=== PATIENT | male | born 1975 | race Caucasian/White ===

== ENCOUNTER → 2020-04-30 | Outpatient (CLI) | payer BC | LOC: CARD 10:00 | PROVIDERS: ATTEND Internal Medicine Cardiovascular Disease | DX: I10 Essential (primary) hypertension (principal); E78.5 Hyperlipidemia, unspecified | CPT/HCPCS: 93306 ==

== ENCOUNTER → 2020-05-01 | Outpatient (CLI) | payer BC ==
[~2020-05-01] VITALS: Ht 160 cm; Wt 78.0 kg
[~2020-05-01] MED LIST: CATHETER FLUSH 10 ML SYR IV PRN
[2020-05-01 12:52] VITALS: BP 132/90
--- NOTE | 2020-05-01 16:56 | STRESS TEST ---
DATE OF SERVICE: 05/01/2020 RESTING AND POST EXERCISE TECHNETIUM-99M TETROFOSMIN SPECT CT IMAGING ORDERING PHYSICIAN: Dr. Montilla. CLINICAL DIAGNOSES: Shortness of breath, hypertension, hyperlipidemia. Baseline images were carried out after injection of 10.26 mCi of technetium-99m Tetrofosmin. This was followed by exercise on a treadmill. Prakash protocol was employed. Heart rate response to exercise was normal. Blood pressure response to exercise was somewhat hypertensive. After the patient had attained more than 85% of maximum predicted heart rate, 30.2 mCi of technetium-99m Tetrofosmin were injected and the exercise was continued for another minute. The exercise was stopped on account of fatigue. There did not appear to be significant ST segment deviation. There was nonspecific T-wave abnormality in the recovery phase. The patient did not report chest discomfort. No significant arrhythmia was seen during the study. Review of images at rest and following stress does not indicate any significant perfusion defects consistent with myocardial ischemia or infarction. Gated images show normal regional wall motion and normal global left ventricular systolic function with a calculated ejection fraction of 53%. Left ventricular end diastolic volume is 34 mL. TID is absent (0.81). CONCLUSIONS: 1. No evidence of any significant myocardial ischemia or infarction on this study. 2. Normal regional wall motion. 3. Normal global left ventricular systolic function with ejection fraction approximately 53%. 4. Somewhat hypertensive response to exercise. Job ID: [id number] DocumentID: [id number] Dictated Date: 05/01/2020 14:26:15 Sausage Maker Date: 05/01/2020 16:55:39 Dictated By: NOE MONTILLA MD, MA, FACP, FACC,
== END ==
LOC: CARD 11:10
PROVIDERS: ATTEND Internal Medicine Cardiovascular Disease
DX: I10 Essential (primary) hypertension (principal); R06.02 Shortness of breath; E78.5 Hyperlipidemia, unspecified
CPT/HCPCS: 78452; 93017; A9502

== ENCOUNTER 2021-01-25 19:03 | Emergency (ER) | payer BC ==
[~2021-01-25] VITALS: Ht 167.6 cm; Wt 70.0 kg
--- NOTE | 2021-01-25 20:10 | ED GU-Female ---
General Chief Complaint: Abdominal/GI Problems Stated Complaint: RECTAL BLEEDING Nursing Triage Note: Pt ambulatory into ER with complaint of Blood in Stools/Diarrhea today. Pt states that he has been having inconsistant bowel movements for the last 6 months, but today he states that there was blood in his stool and on the toilet paper after wiping. Pt denies seeing anyone for the GI symptoms in the past. Source: patient Exam Limitations: no limitations History of Present Illness Date Seen by Provider: Jan 25, 2021 Time Seen by Provider: 20:08 Initial Comments ER with suprapubic and left lower quadrant abdominal pain intermittently over the last 6 months. Particularly bad over the past week. No fevers or chills no nausea or vomiting. Stools have been intermittently loose and then solid he states they are between a 4 and a 6 on the [facility] stool chart. He had a colonoscopy in 2002 but states it was normal. Timing/Duration: constant Severity/Quality: moderate Location: suprapubic Radiation: none Activities at Onset: none Prior Genitourinary Problems: none Allergies and Home Medications Allergies Coded Allergies: No Allergy Information Available (Unverified , 05/01/20) Patient Home Medication List Home Medication List Reviewed: Yes Review of Systems Review of Systems Constitutional: see HPI; No chills, No fever EENTM: see HPI Respiratory: no symptoms reported Cardiovascular: no symptoms reported Gastrointestinal: abdominal pain Genitourinary: no symptoms reported Musculoskeletal: no symptoms reported Skin: no symptoms reported Psychiatric/Neurological: No Symptoms Reported Endocrine: No Symptoms Reported Past Tezjzid-Bkajsk-Wepxil Hx Patient Social History Tobacco Use?: No Use of E-Cig and/or Vaping dev: No Substance use?: No Alcohol Use?: No Pt feels they are or have been: No Immunizations Up To Date Influenza Vaccine Up-to-Date: No; Not Current Second COVID19 Vaccination Jose: 10/03 COVID19 Vaccine Structural Steel Erector: Roberto Physical Exam Vital Signs Vital Signs - First Documented 01/25/21 19:29 Temp 36.7 Pulse 62 Resp 20 B/P (MAP) 145/91 (109) Pulse Ox 95 Capillary Refill : Less Than 3 Seconds Height, Weight, BMI Height: '" Weight: lbs. oz. kg; 24.00 BMI Method: General Appearance: WD/WN, no apparent distress HEENT: PERRL/EOMI, normal ENT inspection Respiratory: no respiratory distress, no accessory muscle use Gastrointestinal: normal bowel sounds, soft, tenderness (Left lower) Extremities: normal range of motion, non-tender Neurologic/Psychiatric: alert, normal mood/affect, oriented x 3 Skin: normal color, warm/dry Progress/Results/Core Measures Suspected Sepsis SIRS Temperature: Pulse: 62 Respiratory Rate: 20 Laboratory Tests 01/25/21 20:36: White Blood Count 10.5 Blood Pressure 145 /91 Mean: 109 Laboratory Tests 01/25/21 20:36: Creatinine 0.95, Platelet Count 300, Total Bilirubin 0.4 Results/Orders Lab Results Laboratory Tests Test 01/25/21 20:21 01/25/21 20:36 Range/Units Urine Color YELLOW Urine Clarity CLEAR Urine pH 6.0 5-9 Urine Specific [place] >=1.030 1.016-1.022 Urine Protein NEGATIVE NEGATIVE Urine Glucose (UA) NEGATIVE NEGATIVE Urine Ketones NEGATIVE NEGATIVE Urine Nitrite NEGATIVE NEGATIVE Urine Bilirubin NEGATIVE NEGATIVE Urine Urobilinogen 0.2 < = 1.0 MG/DL Urine Leukocyte Esterase NEGATIVE NEGATIVE Urine RBC (Auto) 1+ H NEGATIVE Urine RBC 0-2 /HPF Urine WBC NONE /HPF Urine Squamous Epithelial Cells RARE /HPF Urine Crystals NONE /LPF Urine Bacteria NEGATIVE /HPF Urine Casts NONE /LPF Urine Mucus NEGATIVE /LPF Urine Other FEW SPERM H /HPF Urine Culture Indicated NO White Blood Count 10.5 4.3-11.0 10^3/uL Red Blood Count 4.81 4.30-5.52 10^6/uL Hemoglobin 14.9 13.3-17.7 g/dL Hematocrit 44 40-54 % Mean Corpuscular Volume 91 80-99 fL Mean Corpuscular Hemoglobin 31 25-34 pg Mean Corpuscular Hemoglobin Concent 34 32-36 g/dL Red Cell Distribution Width 13.6 10.0-14.5 % Platelet Count 300 130-400 10^3/uL Mean Platelet Volume 8.7 L 9.0-12.2 fL Immature Granulocyte % (Auto) 0 % Neutrophils (%) (Auto) 56 42-75 % Lymphocytes (%) (Auto) 34 12-44 % Monocytes (%) (Auto) 7 0-12 % Eosinophils (%) (Auto) 2 0-10 % Basophils (%) (Auto) 0 0-10 % Neutrophils # (Auto) 5.9 1.8-7.8 10^3/uL Lymphocytes # (Auto) 3.6 1.0-4.0 10^3/uL Monocytes # (Auto) 0.8 0.0-1.0 10^3/uL Eosinophils # (Auto) 0.2 0.0-0.3 10^3/uL Basophils # (Auto) 0.0 0.0-0.1 10^3/uL Immature Granulocyte # (Auto) 0.0 0.0-0.1 10^3/uL Sodium Level 141 135-145 MMOL/L Potassium Level 4.2 3.6-5.0 MMOL/L Chloride Level 103 98-107 MMOL/L Carbon Dioxide Level 23 21-32 MMOL/L Anion Gap 15 H 5-14 MMOL/L Blood Urea Nitrogen 14 7-18 MG/DL Creatinine 0.95 0.60-1.30 MG/DL Estimat Glomerular Filtration Rate 85 BUN/Creatinine Ratio 15 Glucose Level 137 H 70-105 MG/DL Calcium Level 9.6 8.5-10.1 MG/DL Corrected Calcium 9.4 8.5-10.1 MG/DL Total Bilirubin 0.4 0.1-1.0 MG/DL Aspartate Amino Transf (AST/SGOT) 20 5-34 U/L Alanine Aminotransferase (ALT/SGPT) 29 0-55 U/L Alkaline Phosphatase 89 40-136 U/L Total Protein 7.6 6.4-8.2 GM/DL Albumin 4.2 3.2-4.5 GM/DL My Orders Orders - RHIANNON THRASHER ERP TECHNICAL LEAD Cbc With Automated Diff (01/25/21 19:54) Comprehensive Metabolic Panel (01/25/21 19:54) Ua Culture If Indicated (01/25/21 19:54) Ct Abdomen/Pelvis W (01/25/21 19:54) Ed Iv/Invasive Line Start (01/25/21 19:54) Iohexol Injection (Omnipaque 350 Mg/Ml 1 (01/25/21 21:00) Received Contrast (Hold Metformin- Contr (01/25/21 21:00) Ns (Ivpb) (Sodium Chloride 0.9% Ivpb Bag (01/25/21 21:00) Medications Given in ED Current Medications Medications Dose Ordered Sig/Ernie Route Start Time Stop Time Status Last Admin Dose Admin Iohexol 100 ml ONCE ONCE IV 01/25/21 21:00 01/25/21 21:01 DC 01/25/21 20:49 100 ML Sodium Chloride 100 ml ONCE ONCE IV 01/25/21 21:00 01/25/21 21:01 DC 01/25/21 20:49 80 ML Vital Signs/I&O 01/25/21 19:29 Temp 36.7 Pulse 62 Resp 20 B/P (MAP) 145/91 (109) Pulse Ox 95 Capillary Refill : Less Than 3 Seconds Blood Pressure Mean: 109 Departure Communication (Admissions) NAME: LANA RUFFIN MED REC#: [id number] PT STATUS: REG ER : 1975 PHYSICIAN: RHIANNON THRASHER APRN ADMIT DATE: 01/25/21/ER Draft Date of Exam:01/25/21 CT ABDOMEN/PELVIS W EXAMINATION: CT abdomen and pelvis with intravenous contrast. TECHNIQUE: Multiple contiguous axial images were obtained through the abdomen and pelvis after the uneventful administration of intravenous contrast. All CT scans use one or more of the following dose optimizing techniques: automated exposure control, MA and/or KvP adjustment based on patient size and exam type or iterative reconstruction. HISTORY: Bloody diarrhea. COMPARISON: None available. FINDINGS: The heart is unremarkable. The included lung bases are clear. Multiple hypoattenuating foci are seen throughout the liver, the largest in the dome of the liver measuring 1.5 cm. No enhancing lesion is seen. Hepatic steatosis is noted. The portal vein is patent. The gallbladder is unremarkable. The spleen, pancreas, adrenal glands and kidneys have a normal appearance. There is no pathologically enlarged mesenteric or retroperitoneal adenopathy. The bowel loops are nondilated. The appendix is visualized in the right lower quadrant and has a normal appearance. There is no free fluid or free air. No acute osseous abnormality. Ureters and bladder are grossly normal. There is no free air, loculated collection or adenopathy in the pelvis. IMPRESSION: 1. No evidence of bowel obstruction. No free fluid or free air. Normal appendix. 2. Multiple hypoattenuating foci throughout the liver without evidence of enhancement. These are favored to represent benign cysts. There is also hepatic steatosis. Recommend correlation with LFTs and, if indicated, follow-up with liver protocol CT in six months. Dictated on workstation # [id number] Dict: 01/25/212107 Trans: 01/25/212112 [facility] [id number] Interpreted by: FILIBERTO MOYER DO Electronically signed by: Impression Primary Impression: Irregular bowel habits Disposition: 01 HOME, SELF-CARE Condition: Stable Departure-Patient Inst. Decision time for Depature: 20:10 Referrals: MOOKIE CHAO BRETT D DO KIDO, TAKAAKI MD TORCHIA, DAVID M PA (PCP) Primary Care Physician Patient Instructions: No Instuctions Given Add. Discharge Instructions: 1. Call a surgeon of your choosing thursday for follow up appointment to schedule a colonoscopy. Return to ER for any concerns. All discharge instructions reviewed with patient and/or family. Voiced understanding. RHIANNON THRASHER ERP TECHNICAL LEAD Jan 25, 2021 20:10
[2021-01-25 20:26] LABS: BILIRUBIN,URINE NEGATIVE (NEGATIVE); CLARITY,URINE CLEAR; COLOR,URINE YELLOW; GLUCOSE, URINE (UA) NEGATIVE (NEGATIVE); KETONES,URINE NEGATIVE (NEGATIVE); LEUKOCYTE ESTERASE ,URINE NEGATIVE (NEGATIVE); NITRITE,URINE NEGATIVE (NEGATIVE); PROTEIN,URINE NEGATIVE (NEGATIVE)
[2021-01-25 20:35] LABS: BACTERIA,URINE NEGATIVE /HPF; RBC,URINE 0-2 /HPF; SQUAMOUS EPITHELIAL CELL,UR RARE /HPF; URINE OTHER FEW SPERM /HPF
[2021-01-25 20:42] LABS: BASOPHILS % (AUTO) 0 % (0-10); EOSINOPHILS # (AUTO) 0.2 10^3/uL (0.0-0.3); EOSINOPHILS % (AUTO) 2 % (0-10); HEMATOCRIT 44 % (40-54); HEMOGLOBIN 14.9 g/dL (13.3-17.7); LYMPHOCYTES # (AUTO) 3.6 10^3/uL (1.0-4.0); LYMPHOCYTES % (AUTO) 34 % (12-44); MEAN CORPUSCULAR HEMOGLOBIN 31 pg (25-34); MEAN CORPUSCULAR HGB CONC 34 g/dL (32-36); MEAN CORPUSCULAR VOLUME 91 fL (80-99); MEAN PLATELET VOLUME 8.7 fL (9.0-12.2); MONOCYTES # (AUTO) 0.8 10^3/uL (0.0-1.0); MONOCYTES % (AUTO) 7 % (0-12); NEUTROPHILS # (AUTO) 5.9 10^3/uL (1.8-7.8); NEUTROPHILS % (AUTO) 56 % (42-75); PLATELET COUNT 300 10^3/uL (130-400); WHITE BLOOD COUNT 10.5 10^3/uL (4.3-11.0)
[2021-01-25 20:53] LABS: ALBUMIN 4.2 GM/DL (3.2-4.5); POTASSIUM 4.2 MMOL/L (3.6-5.0)
[2021-01-25 20:54] LABS: CALCIUM 9.6 MG/DL (8.5-10.1)
[2021-01-25 20:56] LABS: TOTAL PROTEIN 7.6 GM/DL (6.4-8.2)
[2021-01-25 20:57] LABS: BILIRUBIN,TOTAL 0.4 MG/DL (0.1-1.0)
[2021-01-25 20:59] LABS: CREATININE SERUM 0.95 MG/DL (0.60-1.30)
[2021-01-25] MEDS ORDERED: HOLD METFORMIN - RECEIVED CONTRAST 20 ML VIAL IV SCH (21:00)
[2021-01-25] MEDS ORDERED: NS 100 ML (IVPB) BAG IV ONE (21:00)
[2021-01-25] MEDS ORDERED: IOHEXOL 350 MG/ML 100 ML (OMNIPAQUE 350) VIAL IV ONE (21:00)
--- NOTE | 2021-01-25 21:13 | Diagnostic Imaging Report ---
EXAMINATION: CT abdomen and pelvis with intravenous contrast. TECHNIQUE: Multiple contiguous axial images were obtained through the abdomen and pelvis after the uneventful administration of intravenous contrast. All CT scans use one or more of the following dose optimizing techniques: automated exposure control, MA and/or KvP adjustment based on patient size and exam type or iterative reconstruction. HISTORY: Bloody diarrhea. COMPARISON: None available. FINDINGS: The heart is unremarkable. The included lung bases are clear. Multiple hypoattenuating foci are seen throughout the liver, the largest in the dome of the liver measuring 1.5 cm. No enhancing lesion is seen. Hepatic steatosis is noted. The portal vein is patent. The gallbladder is unremarkable. The spleen, pancreas, adrenal glands and kidneys have a normal appearance. There is no pathologically enlarged mesenteric or retroperitoneal adenopathy. The bowel loops are nondilated. The appendix is visualized in the right lower quadrant and has a normal appearance. There is no free fluid or free air. No acute osseous abnormality. Ureters and bladder are grossly normal. There is no free air, loculated collection or adenopathy in the pelvis. IMPRESSION: 1. No evidence of bowel obstruction. No free fluid or free air. Normal appendix. 2. Multiple hypoattenuating foci throughout the liver without evidence of enhancement. These are favored to represent benign cysts. There is also hepatic steatosis. Recommend correlation with LFTs and, if indicated, follow-up with liver protocol CT in six months. Dictated by: Dictated on workstation # [id number]
[2021-01-25 21:43] VITALS: BP 133/87
== END 2021-01-25 21:43 | disposition home or self-care (01) ==
LOC: EDUNIT# 19:03 → ER 19:06
DX: R19.15 Other abnormal bowel sounds (principal)
CPT/HCPCS: 36415; 74177; 80053; 81000; 85025

== ENCOUNTER 2021-11-26 02:57 | Emergency (ER) | payer SELFPAY ==
[~2021-11-26] VITALS: Ht 160 cm; Wt 81.0 kg
[2021-11-26] MEDS ORDERED: morphine INJ 10 MG/ML 1ML (SYR OR VIAL) IVP STA (03:32)
--- NOTE | 2021-11-26 03:32 | ED Abdominal Pain ---
General Chief Complaint: Abdominal/GI Problems Stated Complaint: ABD PAIN Source of Information: Patient Exam Limitations: No Limitations History of Present Illness Date Seen by Provider: Nov 26, 2021 Time Seen by Provider: 02:59 Initial Comments 46-year-old male with past medical history of hypertension, hyperlipidemia, diabetes that is well controlled by diet coming in due to nominal pain. It starts in his upper abdomen and radiates down to his left lower quadrant. Started just over an hour prior to arrival. Left lower quadrant pain he has had in the past with normal CT and normal colonoscopy. The upper abdominal pain has never happened before. He says it is a cramping type pain. Feels lightheaded when he is having it. Denies any vomiting, chest pain, shortness of breath, weakness, numbness, rash, dysuria, or any other concerns. Has noted nonbloody diarrhea for the past week roughly. He is otherwise denying any other acute complaints. Allergies and Home Medications Allergies Coded Allergies: No Allergy Information Available (Unverified , 05/01/20) Patient Home Medication List Home Medication List Reviewed: Yes Acetaminophen (Tylenol Extra Strength) 500 Mg Tablet, 1,000 MG PO Q6H Prescribed by: DIONNA SNOW on 11/26/21605 Amoxicillin/Potassium Clav (Amox Tr-K Clv 875-125 mg Tab) 875 Mg-125 Mg Tablet, 1 EACH PO BID Prescribed by: DIONNA SNOW on 11/26/21605 Hyoscyamine Sulfate (Levsin-Sl) 0.125 Mg Tab.subl, 0.125 MG SL BID PRN for SPASMS Prescribed by: DIONNA SNOW on 11/26/21605 Ondansetron (Ondansetron Odt) 4 Mg Tab.rapdis, 4 MG PO Q6H PRN for NAUSEA/VOMITING-1ST LINE Prescribed by: DIONNA SNOW on 11/26/21605 Review of Systems Review of Systems Constitutional: No chills, No fever EENTM: No Blurred Vision Respiratory: Denies Cough Cardiovascular: Denies Chest Pain Gastrointestinal: Abdominal Pain, Diarrhea Genitourinary: No Symptoms Reported Musculoskeletal: no symptoms reported Skin: no symptoms reported Psychiatric/Neurological: No Symptoms Reported Endocrine: No Symptoms Reported Hematologic/Lymphatic: No Symptoms Reported All Other Systems Reviewed Negative Unless Noted: Yes Past Kxiaxhq-Yhcibn-Dnjhec Hx Patient Social History Tobacco Use?: No Substance use?: No Alcohol Use?: No Past Medical History Surgeries: Yes (colonoscopy) Physical Exam Vital Signs Capillary Refill : Height/Weight/BMI Height: '" Weight: lbs. oz. kg; 24.00 BMI Method: General Appearance: WD/WN, mild distress HEENT: PERRL/EOMI, normal ENT inspection, pharynx normal Neck: non-tender, full range of motion, supple, normal inspection Respiratory: chest non-tender, lungs clear, normal breath sounds, no respiratory distress, no accessory muscle use Cardiovascular: regular rate, rhythm, no edema, no murmur Gastrointestinal: normal bowel sounds, soft; No distended, No guarding, No rebound; tenderness Extremities: normal range of motion, non-tender, normal inspection, no pedal edema, no calf tenderness, normal capillary refill Back: normal inspection, no CVA tenderness, no vertebral tenderness Neurologic/Psychiatric: no motor/sensory deficits, alert, normal mood/affect Skin: normal color, warm/dry Lymphatic: no adenopathy Progress/Results/Core Measures Results/Orders Lab Results Laboratory Tests Test 11/26/21 03:30 11/26/21 03:31 Range/Units Urine Color YELLOW Urine Clarity CLEAR Urine pH 6.0 5-9 Urine Specific [place] >=1.030 1.016-1.022 Urine Protein 1+ H NEGATIVE Urine Glucose (UA) NEGATIVE NEGATIVE Urine Ketones TRACE H NEGATIVE Urine Nitrite NEGATIVE NEGATIVE Urine Bilirubin NEGATIVE NEGATIVE Urine Urobilinogen 0.2 < = 1.0 MG/DL Urine Leukocyte Esterase NEGATIVE NEGATIVE Urine RBC (Auto) TRACE-I H NEGATIVE Urine RBC RARE /HPF Urine WBC NONE /HPF Urine Squamous Epithelial Cells 2-5 /HPF Urine Crystals NONE /LPF Urine Bacteria NEGATIVE /HPF Urine Casts NONE /LPF Urine Mucus LARGE H /LPF Urine Other MOD SPERM H /HPF Urine Culture Indicated NO White Blood Count 16.4 H 4.3-11.0 10^3/uL Red Blood Count 5.15 4.30-5.52 10^6/uL Hemoglobin 16.0 13.3-17.7 g/dL Hematocrit 47 40-54 % Mean Corpuscular Volume 91 80-99 fL Mean Corpuscular Hemoglobin 31 25-34 pg Mean Corpuscular Hemoglobin Concent 34 32-36 g/dL Red Cell Distribution Width 12.9 10.0-14.5 % Platelet Count 402 H 130-400 10^3/uL Mean Platelet Volume 8.8 L 9.0-12.2 fL Immature Granulocyte % (Auto) 1 % Neutrophils (%) (Auto) 45 42-75 % Lymphocytes (%) (Auto) 46 H 12-44 % Monocytes (%) (Auto) 6 0-12 % Eosinophils (%) (Auto) 2 0-10 % Basophils (%) (Auto) 0 0-10 % Neutrophils # (Auto) 7.4 1.8-7.8 10^3/uL Lymphocytes # (Auto) 7.6 H 1.0-4.0 10^3/uL Monocytes # (Auto) 1.0 0.0-1.0 10^3/uL Eosinophils # (Auto) 0.3 0.0-0.3 10^3/uL Basophils # (Auto) 0.1 0.0-0.1 10^3/uL Immature Granulocyte # (Auto) 0.1 0.0-0.1 10^3/uL Neutrophils % (Manual) 45 % Lymphocytes % (Manual) 43 % Monocytes % (Manual) 8 % Eosinophils % (Manual) 3 % Band Neutrophils 1 % Blood Morphology Comment NORMAL Sodium Level 139 135-145 MMOL/L Potassium Level 4.0 3.6-5.0 MMOL/L Chloride Level 99 98-107 MMOL/L Carbon Dioxide Level 27 21-32 MMOL/L Anion Gap 13 5-14 MMOL/L Blood Urea Nitrogen 16 7-18 MG/DL Creatinine 1.12 0.60-1.30 MG/DL Estimat Glomerular Filtration Rate 81 BUN/Creatinine Ratio 14 Glucose Level 134 H 70-105 MG/DL Calcium Level 9.9 8.5-10.1 MG/DL Corrected Calcium 8.5-10.1 MG/DL Total Bilirubin 0.5 0.1-1.0 MG/DL Aspartate Amino Transf (AST/SGOT) 18 5-34 U/L Alanine Aminotransferase (ALT/SGPT) 23 0-55 U/L Alkaline Phosphatase 106 40-136 U/L Total Protein 8.1 6.4-8.2 GM/DL Albumin 4.6 H 3.2-4.5 GM/DL Lipase 40 8-78 U/L DIONNA Younger MD Comprehensive Metabolic Panel (11/26/21 03:24) Lipase (11/26/21 03:24) Ua Culture If Indicated (11/26/21 03:24) Ed Iv/Invasive Line Start (11/26/21 03:24) Cbc With Automated Diff (11/26/21 03:24) Hyoscyamine Sl Tablet (Levsin Sl Tablet) (11/26/21 03:45) Morphine Injection (Morphine Injection (11/26/21 03:32) Ondansetron Injection (Zofran Injectio (11/26/21 03:45) Lidocaine 2% Viscous 15 Ml (Xylocaine Vi (11/26/21 03:45) Antacid Suspension (Mylanta Suspension (11/26/21 03:45) Ct Abdomen/Pelvis W (11/26/21 03:32) Ns Iv 1000 Ml (Sodium Chloride 0.9%) (11/26/21 03:34) Iohexol Injection (Omnipaque 350 Mg/Ml 1 (11/26/21 03:45) Received Contrast (Hold Metformin- Contr (11/26/21 03:45) Ns (Ivpb) (Sodium Chloride 0.9% Ivpb Bag (11/26/21 03:45) Manual Differential (11/26/21 03:31) Ketorolac Injection (Toradol Injection) (11/26/21 05:45) Diphenhydramine Injection (Benadryl Inje (11/26/21 05:45) Medications Given in ED Current Medications Medications Dose Ordered Sig/Ernie Route Start Time Stop Time Status Last Admin Dose Admin Al Hydrox/Mg Hydrox/Simethicone 30 ml ONCE ONCE PO 11/26/21 03:45 11/26/21 03:46 DC 11/26/21 04:32 30 ML Diphenhydramine HCl 12.5 mg ONCE ONCE IVP 11/26/21 05:45 11/26/21 05:46 DC 11/26/21 05:52 12.5 MG Hyoscyamine Sulfate 0.125 mg ONCE ONCE PO 11/26/21 03:45 11/26/21 03:46 DC 11/26/21 04:31 0.125 MG Iohexol 100 ml ONCE ONCE IV 11/26/21 03:45 11/26/21 03:46 DC 11/26/21 04:29 100 ML Ketorolac Tromethamine 15 mg ONCE ONCE IVP 11/26/21 05:45 11/26/21 05:46 DC 11/26/21 05:52 15 MG Lidocaine HCl 15 ml ONCE ONCE PO 11/26/21 03:45 11/26/21 03:46 DC 11/26/21 04:32 15 ML Ondansetron HCl 4 mg ONCE ONCE IVP 11/26/21 03:45 11/26/21 03:46 DC 11/26/21 04:31 4 MG Sodium Chloride 100 ml ONCE ONCE IV 11/26/21 03:45 11/26/21 03:46 DC 11/26/21 04:31 80 ML Progress Progress Note : Progress Note 46-year-old male with above history coming in due to abdominal pain. ABCs were intact and vitals are stable on presentation. IV was placed and basic labs were obtained and including a white blood cell count that was slightly elevated. LFTs otherwise normal. Urinalysis without evidence of infection. CT with possible enteritis versus obstruction. I evaluated the patient, he does not have any nausea or vomiting. He is having normal bowel movements and passing flatus. Clinically does not have a bowel obstruction. This would fit an enteritis type picture. He was treated symptomatically while in the emergency department. I believe he is stable for discharge with outpatient follow-up. He was sent home with strict return precautions Diagnostic Imaging Diagonstic Imaging: CT Plain Films/CT/US/NM/MRI: abdomen Comments NAME: LANA RUFFIN [facility] REC#: [id number] PT STATUS: REG ER : 1975 PHYSICIAN: DIONNA SNOW MD ADMIT DATE: 11/26/21/ER Signed Date of Exam:11/26/21 CT ABDOMEN/PELVIS W EXAMINATION: CT abdomen and pelvis with intravenous contrast. TECHNIQUE: Multiple contiguous axial images were obtained through the abdomen and pelvis after the uneventful administration of intravenous contrast. All CT scans use one or more of the following dose optimizing techniques: automated exposure control, MA and/or KvP adjustment based on patient size and exam type or iterative reconstruction. HISTORY: Upper abdominal pain. COMPARISON: 01/25/2021. FINDINGS: The heart is unremarkable. The included lung bases are clear. Numerous hypoattenuating foci are seen throughout the liver, similar to the prior exam and likely representing benign hepatic cysts. The portal vein is patent. The gallbladder is nondistended. The spleen, pancreas, adrenal glands, and kidneys have a normal appearance. There is no pathologically enlarged mesenteric or retroperitoneal adenopathy. Fluid-filled prominent loops of small bowel are seen in the mid abdomen. The appendix is seen in the right lower quadrant and is unremarkable. There is a small to moderate volume of stool in the colon. There is no free fluid or free air. No acute osseous abnormalities. Ureters and bladder are grossly normal. There is no free air, loculated collection, or adenopathy in the pelvis. IMPRESSION: 1. Fluid-filled prominent loops of small bowel in the midabdomen. Given the stool burden this is favored to represent enteritis, with early small bowel obstruction not completely excluded. Recommend continued follow-up. Dictated by: Dictated on workstation # [id number] Dict: 11/26/21 0545 Trans: 11/26/21 0554 [id number] Interpreted by: FILIBERTO MOYER DO Electronically signed by: FILIBERTO MOYER DO 11/26/21 0554 Departure Impression Primary Impression: Enteritis Disposition: 01 HOME, SELF-CARE Condition: Stable Departure-Patient Inst. Decision time for Depature: 05:57 Referrals: MARICEL MENSAH DO (PCP) Primary Care Physician [facility] (Family) Primary Care Physician Patient Instructions: Viral Gastroenteritis, Adult (DC) Add. Discharge Instructions: It appeared like you had inflammation of your small intestines called enteritis. This is typically infectious. We will try some antibiotics as well as send you some nausea medicines. We will also try some antispasm medicines to help with pain. If you have significant amount of bloody diarrhea, or have any concerns you can call your regular doctor or come back to the ER. Typically gets better within a few days. Scripts Acetaminophen (Tylenol Extra Strength) 500 Mg Tablet 1000 MG PO Q6H for 5 Days, #40 TAB Prov: DIONNA SNOW MD 11/26/21 Ondansetron (Ondansetron Odt) 4 Mg Tab.rapdis 4 MG PO Q6H PRN for NAUSEA/VOMITING-1ST LINE for 5 Days, #20 TAB Prov: DIONNA SNOW MD 11/26/21 Hyoscyamine Sulfate (Levsin-Sl) 0.125 Mg Tab.subl 0.125 MG SL BID PRN for SPASMS for 7 Days, #14 TAB Prov: DIONNA SNOW MD 11/26/21 Amoxicillin/Potassium Clav (Amox Tr-K Clv 875-125 mg Tab) 875 Mg-125 Mg Tablet 1 EACH PO BID for 7 Days, #14 TAB Prov: DIONNA SNOW MD 11/26/21 Work/School Note: Family Work Note, Patient Received Medical Care In the Emergency Department On: Nov 26, 2021 Patient Will Be Able to Return to Work/School On: Nov 27, 2021 Work Release Form Date Seen in the Emergency Department: Nov 26, 2021 Return to Work: Nov 27, 2021 Restrictions: No Restrictions DIONNA SNOW MD Nov 26, 2021 03:32
[2021-11-26] MEDS ORDERED: NS IV 1000 ML 1,000 ML IV STA (03:34)
[2021-11-26 03:40] LABS: BASOPHILS # (AUTO) 0.1 10^3/uL (0.0-0.1); BASOPHILS % (AUTO) 0 % (0-10); EOSINOPHILS # (AUTO) 0.3 10^3/uL (0.0-0.3); EOSINOPHILS % (AUTO) 2 % (0-10); HEMATOCRIT 47 % (40-54); LYMPHOCYTES # (AUTO) 7.6 10^3/uL (1.0-4.0); LYMPHOCYTES % (AUTO) 46 % (12-44); MEAN CORPUSCULAR HEMOGLOBIN 31 pg (25-34); MEAN CORPUSCULAR HGB CONC 34 g/dL (32-36); MEAN CORPUSCULAR VOLUME 91 fL (80-99); MEAN PLATELET VOLUME 8.8 fL (9.0-12.2); MONOCYTES % (AUTO) 6 % (0-12); NEUTROPHILS # (AUTO) 7.4 10^3/uL (1.8-7.8); NEUTROPHILS % (AUTO) 45 % (42-75); PLATELET COUNT 402 10^3/uL (130-400); WHITE BLOOD COUNT 16.4 10^3/uL (4.3-11.0)
[2021-11-26 03:40] LABS: BILIRUBIN,URINE NEGATIVE (NEGATIVE); CLARITY,URINE CLEAR; COLOR,URINE YELLOW; GLUCOSE, URINE (UA) NEGATIVE (NEGATIVE); KETONES,URINE TRACE (NEGATIVE); LEUKOCYTE ESTERASE ,URINE NEGATIVE (NEGATIVE); NITRITE,URINE NEGATIVE (NEGATIVE); PROTEIN,URINE 1+ (NEGATIVE)
[2021-11-26] MEDS ORDERED: NS 100 ML (IVPB) BAG IV ONE (03:45)
[2021-11-26] MEDS ORDERED: LIDOCAINE 2% VISCOUS 15 ML UDC PO ONE (03:45)
[2021-11-26] MEDS ORDERED: IOHEXOL 350 MG/ML 100 ML (OMNIPAQUE 350) VIAL IV ONE (03:45)
[2021-11-26] MEDS ORDERED: ONDANSETRON 4 MG/2 ML (SDV) Z0FRAN IVP ONE (03:45)
[2021-11-26] MEDS ORDERED: HYOSCYAMINE 0.125 MG (LEVSIN) TAB PO ONE (03:45)
[2021-11-26] MEDS ORDERED: HOLD METFORMIN - RECEIVED CONTRAST 20 ML VIAL IV SCH (03:45)
[2021-11-26] MEDS ORDERED: ANTACID SUSP 30 ML UDC (MYLANTA) PO ONE (03:45)
[2021-11-26 03:47] LABS: BACTERIA,URINE NEGATIVE /HPF; RBC,URINE RARE /HPF
[2021-11-26 03:48] LABS: URINE OTHER MOD SPERM /HPF
[2021-11-26 03:50] LABS: ALBUMIN 4.6 GM/DL (3.2-4.5); CHLORIDE 99 MMOL/L (98-107); SODIUM 139 MMOL/L (135-145)
[2021-11-26 03:51] LABS: CALCIUM 9.9 MG/DL (8.5-10.1)
[2021-11-26 03:52] LABS: GLUCOSE 134 MG/DL (70-105); TOTAL PROTEIN 8.1 GM/DL (6.4-8.2)
[2021-11-26 03:53] LABS: CARBON DIOXIDE 27 MMOL/L (21-32)
[2021-11-26 03:54] LABS: BILIRUBIN,TOTAL 0.5 MG/DL (0.1-1.0)
[2021-11-26 03:56] LABS: ALKALINE PHOSPHATASE 106 U/L (40-136); CREATININE SERUM 1.12 MG/DL (0.60-1.30); GFR ESTIMATED 81
[2021-11-26 03:57] LABS: BUN/CREATININE RATIO 14
[2021-11-26 03:59] LABS: ALANINE AMINOTRANSFERASE 23 U/L (0-55); LIPASE 40 U/L (8-78)
[2021-11-26 04:15] LABS: BAND NEUTROPHILS 1 %; EOSINOPHILS % (MANUAL) 3 %; LYMPHOCYTES % (MANUAL) 43 %; MONOCYTES % (MANUAL) 8 %; NEUTROPHILS % (MANUAL) 45 %; RBC MORPH NORMAL
[2021-11-26] MEDS ORDERED: diphenhydrAMINE 50 MG/ML INJ (BENADRYL) IVP ONE (05:45)
[2021-11-26] MEDS ORDERED: KETOROLAC 30 MG/ML VIAL IVP ONE (05:45)
--- NOTE | 2021-11-26 05:53 | Diagnostic Imaging Report ---
EXAMINATION: CT abdomen and pelvis with intravenous contrast. TECHNIQUE: Multiple contiguous axial images were obtained through the abdomen and pelvis after the uneventful administration of intravenous contrast. All CT scans use one or more of the following dose optimizing techniques: automated exposure control, MA and/or KvP adjustment based on patient size and exam type or iterative reconstruction. HISTORY: Upper abdominal pain. COMPARISON: 01/25/2021. FINDINGS: The heart is unremarkable. The included lung bases are clear. Numerous hypoattenuating foci are seen throughout the liver, similar to the prior exam and likely representing benign hepatic cysts. The portal vein is patent. The gallbladder is nondistended. The spleen, pancreas, adrenal glands, and kidneys have a normal appearance. There is no pathologically enlarged mesenteric or retroperitoneal adenopathy. Fluid-filled prominent loops of small bowel are seen in the mid abdomen. The appendix is seen in the right lower quadrant and is unremarkable. There is a small to moderate volume of stool in the colon. There is no free fluid or free air. No acute osseous abnormalities. Ureters and bladder are grossly normal. There is no free air, loculated collection, or adenopathy in the pelvis. IMPRESSION: 1. Fluid-filled prominent loops of small bowel in the midabdomen. Given the stool burden this is favored to represent enteritis, with early small bowel obstruction not completely excluded. Recommend continued follow-up. Dictated by: Dictated on workstation # [id number]
[2021-11-26] MEDS ORDERED: HYOS0.1283 SL (06:06)
[2021-11-26] MEDS ORDERED: AMOX1TAB12 PO (06:06)
[2021-11-26] MEDS ORDERED: ACET-2267 PO (06:06)
[2021-11-26] MEDS ORDERED: ONDA4TAB11 PO (06:06)
[2021-11-26 06:15] VITALS: BP 117/81
== END 2021-11-26 06:21 | disposition home or self-care (01) ==
LOC: EDUNIT# 02:57 → ER 03:01
DX: K52.9 Noninfective gastroenteritis and colitis, unspecified (principal); D72.829 Elevated white blood cell count, unspecified
CPT/HCPCS: 36415; 74177; 80053; 81000; 83690; 85007; 85027